=== PATIENT | female | born 1995 | race Caucasian/White ===

== ENCOUNTER → 2020-09-05 09:14 | Outpatient (CLI) | payer BC, SELFPAY ==
--- NOTE | ~2020-09-05 | CT_ITS ---
EXAMINATION: CT abdomen pelvis w con DATE: 09/05/2020 09:36 INDICATION: Diverticulitis TECHNIQUE: Computed tomography (CT) of the abdomen and pelvis was performed without intravenous contr ast. Automated exposure control and iterative reconstruction technique were employed. The dose-length product was 965.61 mGy-cm. COMPARISON: None FINDINGS: Lung bases are clear. Heart size is normal. No pericardial or pleural effusion. Liver, gallbladder, s pleen, pancreas, bilateral adrenal glands and kidneys are normal. Small accessory right renal artery and vein extending to the inferior pole. There are few scattered colonic diverticula without adjacent inflammatory change to suggest diverticulitis. Small bowel and appendix are normal. Bladder, antever ender uterus are normal. There are couple small follicles at the left ovary measuring up to 1.3 cm. The right ovary is atrophic. No free intraperitoneal gas or fluid. No pathologically enlarged abdominal or pelvic lymphadenopathy. Mild bilateral sacroiliac osteoarthritis and mild osteitis pubis. IMPRESSION: 1. Mild diverticulosis without adjacent inflammatory change to suggest diverticulitis. Reviewed, dictated and finalized at location A. [employer]ING FURNACE OPERATOR IMPRESSION: 1. Mild diverticulosis without adjacent inflammatory change to suggest divertic ulitis.
== END ==
PROVIDERS: PCP Family Medicine; Visit Provider Nurse Practitioner Family
DX: K57.92 Diverticulitis of intestine, part unspecified, without perforation or abscess without bleeding (principal)
CPT/HCPCS: 74177; Q9967

== ENCOUNTER → 2020-09-11 15:58 | Outpatient (CLI) | payer BC, SELFPAY ==
--- NOTE | ~2020-09-11 | US_ITS ---
EXAMINATION: US pelvic complete DATE: 09/11/2020 16:30 INDICATION: Abnormal CT Comparison:No prior studies for comparison. TECHNIQUE: Multiple transabdominal sonographic images of the pelvis performed. FINDINGS: The uterus measures 8.6 x 3.1 x 5.3 cm. The endometrial complex measures 8 mm. The right ovary measures 1.7 x 1.6 x 0.8 cm and the left ovary measures 2.2 x 1.5 x 2.2 cm. There ar e small follicles in each ovary. There is no free fluid in the pelvis. There are no abnormal masses seen on either side. IMPRESSION: 1. Unremarkable pelvic ultrasound. Reviewed, dictated and finalized at location A. STANCE SPECIALIST
== END ==
PROVIDERS: PCP Family Medicine
DX: R93.89 Abnormal findings on diagnostic imaging of other specified body structures (principal)
CPT/HCPCS: 76856

== ENCOUNTER 2020-11-01 09:40 | Outpatient (CLI) | payer OTHER, SELFPAY ==
[2020-11-05 12:20] LABS: Tissue Transglutaminase IgG Ab 3 U/mL (<6)
[2020-11-07 13:57] LABS: Tissue Transglutaminase IgA Ab 1 U/mL (<4)
== END 2020-11-01 09:41 | disposition home or self-care (01) ==
PROVIDERS: PCP Family Medicine; Visit Provider Internal Medicine Gastroenterology
DX: R10.9 Unspecified abdominal pain (principal)
CPT/HCPCS: 36415; 83516

== ENCOUNTER → 2020-11-20 12:57 | Outpatient (REF) | payer OTHER, SELFPAY | LOC: ANHLAB 12:57 | PROVIDERS: PCP Family Medicine; Visit Provider Nurse Practitioner | DX: N60.01 Solitary cyst of right breast (principal) | CPT/HCPCS: 88304 ==

== ENCOUNTER 2021-02-01 09:03 | Outpatient (CLI) | payer OTHER, SELFPAY ==
[2021-02-01 09:51] LABS: Hematocrit 39.1 % (37.0-47.0); Hemoglobin 13.1 g/dL (12.0-15.0); Mean Corpuscular HGB Conc 33.5 g/dl (32-36); Mean Corpuscular Volume 89.5 fl (80-100); Mean Platelet Volume 9.4 fl (7.4-10.4); Platelet Count Result 254 k/mm3 (150-375); Red Blood Count 4.37 M/mm3 (4.2-5.4); Red Cell Distribution Width 11.9 % (11.5-14.5)
[2021-02-01 10:00] LABS: Alanine Aminotransferase 18 U/L (4-35); Albumin Level 4.3 g/dL (3.5-5.1); Alkaline Phosphatase 65 U/L (38-126); Anion Gap 4 mmol/L (8-16); Aspartate Amino Transferase 24 U/L (14-36); Bilirubin,Total 0.4 mg/dL (0.2-1.3); Blood Urea Nitrogen 9 mg/dL (7-17); Calcium 9.2 mg/dL (8.4-10.2); Carbon Dioxide 30 mmol/L (22-30); Chloride 105 mmol/L (98-107); Cholesterol 179 mg/dL (0-200); Estimated Glomerular Filt Rate > 60; Glucose 91 mg/dL (65-105); HDL Direct 56 mg/dL; Potassium 4.5 mmol/L (3.4-5.0); Sodium 139 mmol/L (137-145); Triglycerides 58 mg/dL (<150)
[2021-02-01 10:11] LABS: LDL Cholesterol Direct 90 mg/dL
[2021-02-01 12:52] LABS: Iron 146 ug/dL (37-170)
[2021-02-01 13:02] LABS: Percent Iron Saturation 47 % (20-50)
== END 2021-02-01 09:04 | disposition home or self-care (01) ==
PROVIDERS: PCP Family Medicine; Visit Provider Nurse Practitioner Family
DX: D64.9 Anemia, unspecified (principal); B35.1 Tinea unguium; Z13.29 Encounter for screening for other suspected endocrine disorder; Z13.220 Encounter for screening for lipoid disorders
CPT/HCPCS: 36415; 80048; 80061; 80076; 83540; 83550; 84443; 85027

== ENCOUNTER → 2021-07-03 03:49 | Outpatient (CLI) | payer OTHER, SELFPAY ==
[2021-07-03 18:05] LABS: SARS-CoV-2 RNA PCR Negative
== END ==
PROVIDERS: PCP Family Medicine; Visit Provider Physician Assistant Medical
DX: R68.89 Other general symptoms and signs (principal); Z20.822 Contact with and (suspected) exposure to COVID-19
CPT/HCPCS: C9803; U0003; U0005

== ENCOUNTER 2021-07-12 16:34 | Emergency (ER) | payer OTHER, SELFPAY ==
[2021-07-12 16:49] VITALS: BP 105/65; PULSE 86; RESP 18; TEMP 37.1; O2SAT 99
--- NOTE | 2021-07-12 17:49 | ED.URI ---
HPI - URI/Sore Throat General Chief Complaint: Upper Respiratory Infection Stated Complaint: Sinus Pain Time Seen by Provider: 07/12/21 17:40 Source: patient and RN notes reviewed Mode of arrival: ambulatory Limitations: no limitations History of Present Illness HPI Narrative: Patient presents today complaining of a 2 to 3-week history of exacerbation of her allergy symptoms with nasal congestion, sneezing, rhinorrhea, cough, postnasal drainage, and frontal headache. States that over the past 2 to 3 days, her symptoms have worsened to include worsening headache, sinus pressure, nasal congestion. She has been taking Tylenol and Zyrtec. Patient is 12 weeks . Denies sore throat or fever. MD elicited complaint: cough, nasal congestion and sinus pain Related Data Home Medications Medication Instructions Recorded Confirmed escitalopram oxalate 10 mg tablet 5 mg PO DAILY 06/21/21 07/12/21 prenat.vits,greer,ukd-uduk-pzmjn 1 tablet PO DAILY 06/21/21 07/12/21 cetirizine 10 mg PO DAILY 07/12/21 07/12/21 cholecalciferol (vitamin D3) 100 mcg PO DAILY 07/12/21 07/12/21 progesterone micronized 200 mg PO DAILY 07/12/21 07/12/21 Allergies Allergy/AdvReac Type Severity Reaction Status Date / Time adhesive AdvReac Mild Rash Verified 07/12/21 17:00 Review of Systems Review of Systems: CONSTITUTIONAL: Denies body aches, fever, chills, or sweats. EYES: Denies visual changes, redness, or discharge. ENT: Denies sore throat, or otalgia. + Congestion, sneezing, rhinorrhea, postnasal drip CARDIOVASCULAR: Denies chest pain, palpitations, or edema. RESPIRATORY: Denies dyspnea.+ Cough GASTROINTESTINAL: Denies abdominal pain, nausea, vomiting, or diarrhea. GENITOURINARY: Denies dysuria or hematuria. SKIN: Denies rash, itching, or wounds. MUSCULOSKELETAL: Denies back pain, joint pain, or myalgia. NEUROLOGIC: Denies numbness, tingling, or weakness.+ Headache PSYCH: Denies depression or anxiety. PMF Past Medical History Medical History Bloating Colon, diverticulosis Epigastric abdominal tenderness with rebound tenderness Obese Right acute serous otitis media Surgical History Surgical History S/P laparoscopic procedure Family History Family History Father Hypertension Hyperlipidemia Acute myocardial infarction Mother Hypertension Hyperlipidemia Depression Sibling No problems noted. Other Diabetes mellitus Family history of hypercholesterolemia Social History Social History Second hand tobacco smoke exposure: Yes Alcohol intake: former Substance use: never Substance use type: does not use Additional occupation/education comments: financial Gender identity (if verbalized by the patient): Female Spiritual care concerns: No Comments At time of signature, I have reviewed and agree with nursing past medical, surgical, social and family history unless otherwise noted. Please see nursing chart for further information. There is no relevant family history pertinent to the presenting complaint Exam Narrative: GENERAL: Well-appearing, well-nourished, and in no acute distress. HEAD: Normocephalic, atraumatic. EYES: EOMI. No redness or drainage. Conjunctivae normal. ENT: Mucous membranes pink and moist. Nares congested with rhinorrhea. Bilateral swollen nasal turbinates. TMs normal bilaterally. Throat normal. Uvula midline. Nontender frontal and maxillary sinuses. NECK: Normal AROM. Supple. No lymphadenopathy. CHEST: No respiratory distress. Clear to auscultation. HEART: Regular rate and rhythm. No murmur appreciated. Normal peripheral pulses. EXTREMITIES: Normal range of motion. No edema. SKIN: Warm, dry, no rash. Capillary refill normal. Normal skin turg
== END 2021-07-12 18:00 | disposition home or self-care (01) ==
PROVIDERS: Emergency Provider Nurse Practitioner; PCP Family Medicine
DX: J30.9 Allergic rhinitis, unspecified (principal); E66.9 Obesity, unspecified; Z68.34 Body mass index [BMI] 34.0-34.9, adult
CPT/HCPCS: 99213; G0463

== ENCOUNTER 2022-06-03 08:34 | Outpatient (CLI) | payer OTHER, SELFPAY ==
[2022-06-03 08:57] LABS: Hematocrit 39.9 % (37.0-47.0); Hemoglobin 13.2 g/dL (12.0-15.0); Mean Corpuscular HGB Conc 33.1 g/dl (32-36); Mean Corpuscular Hemoglobin 30.3 pg (26-34); Mean Corpuscular Volume 91.5 fl (80-100); Mean Platelet Volume 8.8 fl (7.4-10.4); Platelet Count Result 258 k/mm3 (150-375); Red Blood Count 4.36 M/mm3 (4.2-5.4); Red Cell Distribution Width 13.5 % (11.5-14.5); White Blood Count 5.8 K/mm3 (4.5-10.0)
[2022-06-03 09:08] LABS: Alanine Aminotransferase 15 U/L (6-35); Albumin Level 4.7 g/dL (3.5-5.1); Alkaline Phosphatase 137 U/L (38-126); Anion Gap 10 mmol/L (8-16); Aspartate Amino Transferase 27 U/L (14-36); Bilirubin,Total 0.5 mg/dL (0.2-1.3); Blood Urea Nitrogen 12 mg/dL (7-17); Calcium 9.1 mg/dL (8.4-10.2); Carbon Dioxide 27 mmol/L (22-30); Chloride 102 mmol/L (98-107); Cholesterol 249 mg/dL (0-200); Estimated Glomerular Filt Rate > 60; Glucose 90 mg/dL (65-110); HDL Direct 89 mg/dL; Sodium 139 mmol/L (137-145); Triglycerides 54 mg/dL (<150)
[2022-06-03 09:19] LABS: LDL Cholesterol Direct 115 mg/dL
== END 2022-06-03 08:35 | disposition home or self-care (01) ==
LOC: ANHLAB 08:35
PROVIDERS: PCP Family Medicine; Visit Provider Nurse Practitioner Family
DX: O24.419 Gestational diabetes mellitus in pregnancy, unspecified control (principal); Z3A.00 Weeks of gestation of pregnancy not specified; Z13.29 Encounter for screening for other suspected endocrine disorder; D64.9 Anemia, unspecified
CPT/HCPCS: 36415; 80053; 80061; 83036; 84443; 85027

== ENCOUNTER 2023-02-07 09:29 | Emergency (ER) | payer OTHER, SELFPAY ==
[2023-02-07 09:31] VITALS: BP 129/74; PULSE 69; RESP 18; TEMP 36.6; O2SAT 100
--- NOTE | 2023-02-07 09:41 | ED.ANIMALBIT ---
HPI - Animal Bite General Chief Complaint: Animal Bite Stated Complaint: bitten by spider Time Seen by Provider: 02/07/23 09:31 History of Present Illness HPI narrative: 27-year-old female presented to the ED for evaluation of a spider bite to her left middle finger on Thursday. Patient states that she had a blister on her finger yesterday and she opened the blister. Patient states the redness has since improved. Patient states this was a brown recluse spider bite. Related Data Home Medications Medication Instructions Recorded Confirmed prenat.vits,greer,iwv-obix-mtfio 1 tablet PO DAILY 06/21/21 05/09/22 cetirizine 10 mg tablet 10 mg PO DAILY 07/12/21 05/09/22 tsering seed oil-omega 3-6-9 1,000 mg cap PO 05/09/22 05/09/22 (580 mg) capsule Allergies Allergy/AdvReac Type Severity Reaction Status Date / Time adhesive AdvReac Mild Rash Verified 05/09/22 10:00 Review of Systems Review of Systems: All systems reviewed & are unremarkable except as noted in HPI and below PMFSH Past Medical History Medical History Bloating BMI 33.0-33.9,adult Colon, diverticulosis Epigastric abdominal tenderness with rebound tenderness Obese Right acute serous otitis media Surgical History Surgical History History of D&C S/P laparoscopic procedure Family History Family History Father Hypertension Hyperlipidemia Acute myocardial infarction Mother Hypertension Hyperlipidemia Depression Sibling No problems noted. Other Diabetes mellitus Family history of hypercholesterolemia Social History Social History Smoking status: Never smoker Second hand tobacco smoke exposure: Yes Alcohol intake: former Substance use: never Substance use type: does not use Living arrangements: with family Occupation/Education: occupation Additional occupation/education comments: financial Gender identity (if verbalized by the patient): Female Spiritual care concerns: No Exam Narrative: APPEARANCE: Well appearing, no pain, no distress, well-nourished. HEAD: normocephalic, atraumatic. EYES: PERRLA/EOMI, conjunctivae clear. NECK: Supple. No adenopathy, no masses. RESPIRATORY: Airway patent, respirations nonlabored. Clear to auscultation bilaterally, no rales, rhonchi, wheezing. CARDIOVASCULAR: Regular rate and rhythm without murmurs rubs or gallops. ABDOMINAL: Soft, nontender, nondistended, normal bowel sounds MUSCULOSKELETAL: Moves all extremities. Strength/ROM intact, No edema, No calf tenderness. NEURO: Alert. Cranial nerves II through XII intact. Good gait. Good coordination SKIN: Healing blister to left middle finger. No significant cellulitis. Course Course Emergency Course: Patient is being treated with topical antibiotic for possible spider bite. Patient was updated on the plan for wound care and for antibiotics. All questions and concerns were addressed. Vital Signs Vital signs: Vital Signs Temperature 97.8 F 02/07/23 09:31 Pulse Rate 69 02/07/23 09:31 Respiratory Rate 18 02/07/23 09:31 Blood Pressure 129/74 02/07/23 09:31 Pulse Oximetry 100 02/07/23 09:31 Oxygen Delivery Room Air 02/07/23 09:31 Temperature 97.8 F 02/07/23 09:31 Pulse Rate 69 02/07/23 09:31 Respiratory Rate 18 02/07/23 09:31 Blood Pressure 129/74 02/07/23 09:31 Pulse Oximetry 100 02/07/23 09:31 Oxygen Delivery Room Air 02/07/23 09:31 MDM - Animal Bite Differential Diagnosis Differential diagnosis: Likely bite by animal and other Discharge Plan Discharge Clinical Impression: Wound cellulitis Patient Disposition: Home, Self-Care Condition: Stable Instructions: Antibiotic Form, Animal Bite (ED) Additional Instructions: Antibiotic ointmen
== END 2023-02-07 10:20 | disposition home or self-care (01) ==
PROVIDERS: Emergency Provider Emergency Medicine; PCP Family Medicine
DX: L03.012 Cellulitis of left finger (principal)
CPT/HCPCS: 99283

== ENCOUNTER 2023-04-28 08:50 | Emergency (ER) | payer OTHER, SELFPAY ==
[2023-04-28 08:59] VITALS: BP 132/69; PULSE 87; RESP 18; TEMP 36.5; O2SAT 100
--- NOTE | 2023-04-28 09:47 | ED.GENADULT ---
HPI - General Adult General Chief complaint: Upper Respiratory Infection Stated complaint: Sore Throat/Ear Pain Source: patient Mode of arrival: ambulatory Limitations: no limitations History of Present Illness HPI narrative: Patient presents for evaluation of sick symptoms for last 2 days. Symptoms include sinus congestion, clear rhinorrhea, sore throat, bilateral otalgia, cough, hot flashes and chills. No nausea, vomiting or diarrhea. She states her child had a virus last week, as determined by the child's marine welder. Pt has not been taking any medications for her symptoms as she is currently . She does not smoke. Related Data Home Medications Medication Instructions Recorded Confirmed prenat.vits,greer,lvq-qetn-cqyfx 1 tablet PO DAILY 06/21/21 04/28/23 cetirizine 10 mg tablet 10 mg PO DAILY 07/12/21 04/28/23 tsering seed oil-omega 3-6-9 1,000 mg 1 cap PO DAILY 05/09/22 04/28/23 (580 mg) capsule hydrocortisone 2.5 % topical cream 1 applic topical BID 04/28/23 04/28/23 norethindrone 1 mg-ethinyl 1 tablet PO DAILY 04/28/23 04/28/23 estradiol 20 mcg (24)-iron 75 mg (4) tablet (Blisovi 24 Fe) Allergies Allergy/AdvReac Type Severity Reaction Status Date / Time adhesive AdvReac Mild Rash Verified 04/28/23 09:41 Review of Systems Review of Systems: CONSTITUTIONAL: Reports hot flashes and chills. Denies objective feverr EYES: Denies visual changes, redness, or discharge. ENT: Reports sinus congestion, clear rhinorrhea, sore throat and bilateral otalgia. CARDIOVASCULAR: Denies chest pain, palpitations, or edema. RESPIRATORY: Reports cough. Denies dyspnea. GASTROINTESTINAL: Denies abdominal pain, nausea, vomiting, or diarrhea. GENITOURINARY: Denies dysuria or hematuria. SKIN: Denies rash or itching. MUSCULOSKELETAL: Denies back pain, joint pain, or myalgia. NEUROLOGIC: Denies headache, numbness, dizziness, or weakness. PSYCHIATRIC: Denies anxiety or depression. [facility] Past Medical History Medical History Bloating BMI 33.0-33.9,adult Colon, diverticulosis Epigastric abdominal tenderness with rebound tenderness Obese Right acute serous otitis media Surgical History Surgical History History of D&C S/P laparoscopic procedure Family History Family History Father Hypertension Hyperlipidemia Acute myocardial infarction Mother Hypertension Hyperlipidemia Depression Sibling No problems noted. Other Diabetes mellitus Family history of hypercholesterolemia Social History Social History Smoking status: Never smoker Second hand tobacco smoke exposure: Yes Alcohol intake: former Substance use: never Substance use type: does not use Living arrangements: with family Occupation/Education: occupation Additional occupation/education comments: financial Gender identity (if verbalized by the patient): Female Spiritual care concerns: No Exam Narrative: GENERAL: Well-appearing, well-nourished, and in no acute distress. HEAD: Normocephalic, atraumatic. EYES: PERRLA and EOMI. ENT: Nares clear, no rhinorrhea or epistaxis. Mucous membranes moist. Oropharynx without tonsillar hypertrophy exudate or other lesions. Bilateral TMs pearly roa nonbulging. Right TM has some scarring present NECK: Supple. No adenopathy or masses. No carotid bruits or JVD CHEST: Clear to auscultation. No respiratory distress. No wheezes rales or rhonchi HEART: Regular rate and rhythm. No murmur heard. Normal peripheral pulses. ABDOMEN: Soft, nontender, nondistended, normal active bowel sounds. EXTREMITIES: Normal range of motion. No edema. SKIN: Warm, dry, no rash. NEURO: No focal deficits. Alert and oriented x3. PSYCH: Normal mood and affect
== END 2023-04-28 09:52 | disposition home or self-care (01) ==
PROVIDERS: Emergency Provider Nurse Practitioner; PCP Family Medicine
DX: J06.9 Acute upper respiratory infection, unspecified (principal); E66.9 Obesity, unspecified; Z68.36 Body mass index [BMI] 36.0-36.9, adult
CPT/HCPCS: 87081; 87880; 99213; G0463

== ENCOUNTER 2024-06-02 18:47 | Emergency (ER) | payer OTHER, SELFPAY ==
--- NOTE | ~2024-06-02 | XR_ITS ---
EXAMINATION: XR chest 2V DATE: 06/02/2024 19:34 INDICATION: Pneumonia. TECHNIQUE: Frontal and lateral views of the chest were obtained. COMPARISON: None. FINDINGS: There are airspace opacities in left lower lung zone, consistent with pneumonia. No pleural effusion or pneumothorax. The heart size is normal. IMPRESSION: 1. Reviewed, dictated and finalized at location A. IMPRESSION: 1.
[2024-06-02 18:47] VITALS: BP 138/86; PULSE 110; RESP 18; TEMP 37.1; O2SAT 100
[2024-06-02] MEDS: BENZONATATE 100 MG CAPSULE PO (22:07)
[2024-06-02] MEDS: AZITHROMYCIN 250 MG TABLET 500 MG PO (22:07)
[2024-06-02] MEDS: AMOXICILLIN/CLAVULANATE K 875-125 MG TAB 1 TABLET PO (22:07)
--- NOTE | 2024-06-02 22:08 | ED.GENADULT ---
HPI - General Adult General Chief complaint: Unspecified Stated complaint: r/o pneumonia Time Seen by Provider: 06/02/24 21:55 History of Present Illness HPI narrative: 29-year-old female presented emergency department for evaluation for persistent cough. Patient was initially treated for an upper respiratory infection but has had worsening cough and congestion. Patient presents emergency department for evaluation. Patient has been using an albuterol inhaler and Tessalon Perles. Related Data Home Medications Medication Instructions Recorded Confirmed cetirizine 10 mg tablet 10 mg PO DAILY 07/12/21 06/02/24 multivit,wwqbhse-mgyt-PB-lut-#179herbal tablet PO 10/27/23 06/02/24 13.5 mg-200 mcg-250 mcg tablet Allergies Allergy/AdvReac Type Severity Reaction Status Date / Time alfalfa Allergy Severe Rash Verified 06/02/24 10:27 adhesive AdvReac Mild Rash Verified 06/02/24 10:27 Review of Systems Review of Systems: All systems reviewed & are unremarkable except as noted in HPI and below PMFSH Past Medical History Medical History (Updated 06/03/24 @ 00:00 by Paco Louis) Bloating Colon, diverticulosis Encounter for screening for lipid disorder Epigastric abdominal tenderness with rebound tenderness Hematochezia Hemorrhoids Obese Rash Right acute serous otitis media Screening for thyroid disorder Screening for thyroid disorder Skin cancer screening Surgical History Surgical History History of D&C S/P laparoscopic procedure Family History Family History Father Hypertension Hyperlipidemia Acute myocardial infarction Mother Hypertension Hyperlipidemia Depression Sibling No problems noted. Other Diabetes mellitus Family history of hypercholesterolemia Social History Social History Smoking status: Never smoker Second hand tobacco smoke exposure: Yes Alcohol intake: former Substance use: never Substance use type: does not use Living arrangements: with family Occupation/Education: occupation Additional occupation/education comments: financial Gender identity (if verbalized by the patient): Female Spiritual care concerns: No Exam Narrative: APPEARANCE: Uncomfortable secondary to coughing HEAD: normocephalic, atraumatic. EYES: PERRLA/EOMI, conjunctivae clear. NOSE: Normal no drainage EARS:TMS clear with good light reflex. THROAT: Pharynx clear, no exudate. NECK: Supple. No adenopathy, no masses. RESPIRATORY: Airway patent, respirations nonlabored. Clear to auscultation bilaterally, no rales, rhonchi, wheezing. CARDIOVASCULAR: Regular rate and rhythm without murmurs rubs or gallops. ABDOMINAL: Soft, nontender, nondistended, normal bowel sounds MUSCULOSKELETAL: Moves all extremities. Strength/ROM intact, No edema, No calf tenderness. NEURO: Alert. Cranial nerves II through XII intact. Grossly intact SKIN: Warm, dry. Normal Color Course Vital Signs Vital signs: Vital Signs Temperature 98.7 F 06/02/24 18:47 Pulse Rate 110 H 06/02/24 18:47 Respiratory Rate 18 06/02/24 18:47 Blood Pressure 138/86 06/02/24 18:47 Pulse Oximetry 100 06/02/24 18:47 Temperature 98.9 F 06/02/24 23:24 Pulse Rate 98 06/02/24 23:24 Respiratory Rate 19 06/02/24 23:24 Blood Pressure 134/74 06/02/24 23:24 Pulse Oximetry 96 06/02/24 23:24 Medical Decision Making MDM Narrative Medical decision making narrative: 29-year-old female present to the emergency department for evaluation for cough congestion. Chest x-ray was concerning for pneumonia. Patient was started on Augmentin and azithromycin the emergency department. Patient had a refill for her Tessalon Perles. Patient was also provided some T3 to also help with her cough and bronchospasm that was witnessed in
[2024-06-02] MEDS: ALBUTEROL SULFATE NEB 2.5 MG/3 ML INH INHALATION (22:30)
[2024-06-02 22:33] VITALS: PULSE 100; RESP 20
[2024-06-02 22:41] VITALS: PULSE 100; RESP 20
[2024-06-02 22:45] VITALS: RESP 22; O2SAT 97
[2024-06-02 23:24] VITALS: BP 134/74; PULSE 98; RESP 19; TEMP 37.2; O2SAT 96
== END 2024-06-02 23:30 | disposition home or self-care (01) ==
LOC: ANHED 22:12
PROVIDERS: Emergency Provider Emergency Medicine; PCP Family Medicine
DX: J18.9 Pneumonia, unspecified organism (principal); E66.9 Obesity, unspecified; Z68.32 Body mass index [BMI] 32.0-32.9, adult
CPT/HCPCS: 71046; 94640; 99283; A9270

== ENCOUNTER 2024-06-19 09:28 | Emergency (ER) | payer OTHER, SELFPAY ==
--- NOTE | ~2024-06-19 | XR_ITS ---
EXAMINATION: XR chest 2V DATE: 06/19/2024 10:11 INDICATION: Fever and chills. Cough. TECHNIQUE: Frontal and lateral views of the chest were obtained. COMPARISON: Chest 2 views 06/02/2024 FINDINGS: There is no pneumonia, pleural effusion, or pneumothorax. The heart size is normal. IMPRESSION: 1. No acute cardiopulmonary disease. Reviewed, dictated and finalized at location A.
[2024-06-19 09:29] VITALS: BP 131/87; PULSE 104; RESP 17; TEMP 36.4; O2SAT 100
[2024-06-19 10:44] LABS: Influenza A QL RT-PCR Negative (Negative); Influenza B QL RT-PCR Negative (Negative); SARS-CoV-2 RNA PCR Negative (Negative)
--- NOTE | 2024-06-19 10:54 | ED.GENADULT ---
HPI - General Adult General Chief complaint: Upper Respiratory Infection Stated complaint: bodyaches, fever, productive cough Time Seen by Provider: 06/19/24 09:58 History of Present Illness HPI narrative: Patient is a 29-year-old female who presents to the emergency department this morning complaining of URI symptoms. Patient states that she was here approximately 2 weeks ago and was diagnosed with pneumonia and started on Augmentin and azithromycin which patient states that she completed the full course of the antibiotics. She was also started on Tessalon Perles as well and patient states that her symptoms did improve but within the past few days she started to feel feverish and has been having some body aches and a productive cough and was concerned that her pneumonia returned and wanted to be checked out. Patient initially was going to go see her primary care physician but has not been able to get in and has teary duty tomorrow so wanted this checked out before then. Patient denies any sore throat, any chest pain, any shortness of breath, any nausea, vomiting, abdominal pain, dysuria or hematuria. Noted fevers or concerns at this time. Related Data Home Medications Medication Instructions Recorded Confirmed cetirizine 10 mg tablet 10 mg PO DAILY 07/12/21 06/02/24 multivit,upagraz-begb-MH-lut-#179herbal tablet PO 10/27/23 06/02/24 13.5 mg-200 mcg-250 mcg tablet Allergies Allergy/AdvReac Type Severity Reaction Status Date / Time alfalfa Allergy Severe Rash Verified 06/19/24 09:57 adhesive AdvReac Mild Rash Verified 06/19/24 09:57 Review of Systems Review of Systems: All systems are reviewed and are negative unless stated otherwise in the HPI. [facility] Past Medical History Medical History Bloating Colon, diverticulosis Encounter for screening for lipid disorder Epigastric abdominal tenderness with rebound tenderness Hematochezia Hemorrhoids Obese Rash Right acute serous otitis media Screening for thyroid disorder Screening for thyroid disorder Skin cancer screening Surgical History Surgical History History of D&C S/P laparoscopic procedure Family History Family History Father Hypertension Hyperlipidemia Acute myocardial infarction Mother Hypertension Hyperlipidemia Depression Sibling No problems noted. Other Diabetes mellitus Family history of hypercholesterolemia Social History Social History Smoking status: Never smoker Second hand tobacco smoke exposure: Yes Alcohol intake: former Substance use: never Substance use type: does not use Living arrangements: with family Occupation/Education: occupation Additional occupation/education comments: financial Gender identity (if verbalized by the patient): Female Spiritual care concerns: No Exam Narrative: General: Alert, awake, afebrile, in no acute distress. HEENT: PERRL, no rhinorrhea, no post nasal drip, oropharynx clear. Cardiovascular: Regular rate and rhythm, no murmurs, rubs or gallops, no peripheral edema. Respiratory: Clear to auscultation bilaterally, no tachypnea, no wheezing, no rhonchi, no rubs, no respiratory distress. Abdomen: Soft, nontender, nondistended, no rebound, no guarding, no peritoneal signs. Musculoskeletal: No joint swelling or deformity, normal muscle tone. Skin: No rashes or petechia, no signs of infection. Neurological: Alert and oriented to person, place, and time. Follows all commands. No focal deficits, speech is clear and fluent. Course Vital Signs Vital signs: Vital Signs Temperature 97.6 F 06/19/24 09:29 Pulse Rate 104 H 06/19/24 09:29 Respiratory Rate 17 06/19/24 09:29 Blood Pressure 131/87 06/19/24 09:29 Pulse Oximetry 100 09/2
== END 2024-06-19 10:55 | disposition home or self-care (01) ==
PROVIDERS: Emergency Provider Emergency Medicine; PCP Family Medicine
DX: B34.9 Viral infection, unspecified (principal); Z20.822 Contact with and (suspected) exposure to COVID-19; E66.9 Obesity, unspecified; Z68.37 Body mass index [BMI] 37.0-37.9, adult
CPT/HCPCS: 71046; 87636; 99283